=== PATIENT | male | born 1945 | race African-American/Black ===

== ENCOUNTER → 2021-10-12 | Day surgery (SDC) | payer MEDICARE ==
[~2021-10-12] MED LIST: DOXAZOSIN MESYLA4 MG PO; HYDROCODON-ACE1 EAC7 PO; PROSCAR 5MG TABL5 M1 PO; VERAPAMIL ER180 M1 PO; XARELTO20 MG PO
[2021-10-12 09:29] LABS: CALCIUM 8.9 mg/dL (8.5-10.1); CREATININE 1.3 mg/dL (0.6-1.3); HEMATOCRIT 46.9 % (42.0-52.0); HEMOGLOBIN 15.9 gm/dL (14.0-18.0); MCV 91.2 fL (80.0-100.0); POTASSIUM 3.6 mmol/L (3.5-5.1); RBC 5.14 mil/uL (4.50-6.00); RDW-CV 14.2 % (10.5-14.5); WBC 7.2 thou/uL (4.0-11.0)
[2021-10-12 10:03] LABS: APTT 30.1 Seconds (25.0-31.3); INR 1.1; PROTIME 11.6 Seconds (9.20-11.50)
--- NOTE | 2021-10-19 09:22 | OP ---
[facility] [address] [place] [address] OPERATIVE REPORT Name: TOM SU Room: [facility]#: [id number] Admission: 10/12/21 Attend Phys: Kar Saul Discharge: Date of : 43 Report #: [id number] THIS REPORT FOR: cc: Bernarda Salvador Mohammad K. DO Patterson,Kar Menjivar MD ~ DATE OF SURGERY: 10/12/2021 PREOPERATIVE DIAGNOSIS: Right inguinal hernia. POSTOPERATIVE DIAGNOSIS: Right inguinal hernia. OPERATION: Laparoscopic repair of right inguinal hernia with mesh. SURGEON: Kar Saul MD ANESTHESIA: General. ESTIMATED BLOOD LOSS: Minimal. SPECIMENS: None. DESCRIPTION OF PROCEDURE: After informed consent was obtained, the patient was brought to the operating room and placed supine. SCDs were placed and working, preoperative antibiotics were administered, general anesthesia was induced. The abdomen was prepped and draped in the usual sterile fashion. A 10 mm incision was made below the umbilicus. Fascia was incised and a trocar was placed. Pneumoperitoneum was established. Right and left lower quadrant 5 mm trocars were placed. The peritoneum at the right ASIS was scored. Peritoneum was then incised medially and reflected inferiorly. The cord structures were then identified. Anjel's ligament was identified. The epigastric vessels were identified. He had a small indirect inguinal hernia and this was carefully reduced. I protected the cord structures at all times. A large Bard 3DMax mesh was inserted. It was tacked to Anjel's ligament with 2 absorbable tacks. I then reapproximated the peritoneum over the mesh with the tacker as well. The mesh was 100% covered. The area was then instilled with 10 mL of 0.5% Marcaine solution. The ports were then removed under direct vision. Fascia was then closed with a [id number]-tq-jsadr 0 Vicryl. Skin was closed with 4-0 Monocryl. Incisions were dressed with Steri-Strips. COMPLICATIONS: [id number] OPERATIVE REPORT Name: TOM SU Room: [facility]#: [id number] Admission: 10/12/21 Attend Phys: Kar Saul Discharge: Date of : 43 Report #: [id number] DISPOSITION: The patient was taken to recovery in satisfactory condition. <ELECTRONICALLY SIGNED> By: Kar Saul MD 10/19/21 0922 [id number] Saul MD /nt
== END | disposition home or self-care (01) ==
LOC: M.SUR 08:43
PROVIDERS: ATTEND Surgery
DX: K40.90 Unilateral inguinal hernia, without obstruction or gangrene, not specified as recurrent (principal); I10 Essential (primary) hypertension; Z79.899 Other long term (current) drug therapy; Z98.890 Other specified postprocedural states; I48.91 Unspecified atrial fibrillation; Z20.822 Contact with and (suspected) exposure to COVID-19; Z79.01 Long term (current) use of anticoagulants